=== PATIENT | female | born 1985 | race Two or more races ===

== ENCOUNTER 2021-01-01 13:52 | Emergency (ER) | payer BC, OTHER ==
[~2021-01-01] VITALS: Ht 180.3 cm; Wt 52.6 kg
[2021-01-01 14:45] LABS: Urine Bacteria NONE SEEN /hpf (None Seen); Urine Blood Negative /uL (Negative); Urine Specific Gravity 1.006 (1.001-1.035); Urine WBC <1 /hpf (0 - 5)
[2021-01-01 15:04] LABS: Basophils # (auto) 0 10 ^3/uL (0-0.2); Basophils % (auto) 0.4 % (0.0-2.0); Eosinophils # (auto) 0 10 ^3/uL (0-0.8); Eosinophils % (auto) 0.1 % (0.0-7.0); Hematocrit 43.1 % (36.0-46.0); Hemoglobin 14.9 g/dL (12.2-16.2); Lymphocytes # (auto) 1.5 10 ^3/uL (0.4-5.4); Lymphocytes % (auto) 24.1 % (10.0-50.0); Mean Corpuscular Hemoglobin 30.5 pg (28.0-32.0); Mean Corpuscular Hgb Conc. 34.5 g/dL (32.0-36.0); Mean Corpuscular Volume 88.4 fL (80.0-100.0); Monocytes # (auto) 0.4 10 ^3/uL (0-1.3); Monocytes % (auto) 6.3 % (0.0-12.0); Neutrophils # (auto) 4.3 10 ^3/uL (1.6-8.6); Neutrophils % (auto) 69.1 % (37.0-80.0); Nucleated Red Blood Cells % 0.1 %; Red Blood Cells 4.88 10^6/uL (4.0-5.20); Red Cell Distribution Width 12.7 % (11.8-14.3); White Blood Cell 6.2 10^3/uL (4.4-10.8)
[2021-01-01 15:15] LABS: Albumin 4.2 g/dL (3.4-5.0); Calcium 8.8 mg/dL (8.5-10.1); Potassium 3.7 mmol/L (3.5-5.1)
[2021-01-01 15:19] LABS: BUN/Creatinine Ratio 13.8; Bilirubin, Total 2.4 mg/dL (0.2-1.0); Total Protein 7.9 g/dL (6.4-8.2)
[2021-01-01] MEDS ORDERED: SODIUM CHLORIDE 0.9% 1,000 ML IV ONE (17:15)
[2021-01-01] MEDS ORDERED: METOCLOPRAMIDE HCL 5MG/ml INJ 2ml VIAL IV ONE (17:15)
[2021-01-01 17:52] VITALS: BP 104/77
[2021-01-01 18:22] LABS: Magnesium 2.5 mg/dL (1.6-2.6)
== END 2021-01-01 18:32 | disposition home or self-care (01) ==
LOC: ER 13:52
DX: R10.31 Right lower quadrant pain (principal); E80.6 Other disorders of bilirubin metabolism
CPT/HCPCS: 36415; 74176; 80053; 81001; 81025; 83690; 83735; 84443; 84702; 85025

== ENCOUNTER 2024-10-06 15:44 | Emergency (ER) | payer BC ==
[~2024-10-06] VITALS: Ht 180.3 cm; Wt 63.0 kg
[2024-10-06 16:40] LABS: Urine Bacteria None Seen /hpf (None Seen)
[2024-10-06 16:48] LABS: Basophils # (auto) 0 10 ^3/uL (0-0.2); Basophils % (auto) 0.2 % (0.0-2.0); Eosinophils # (auto) 0 10 ^3/uL (0-0.8); Eosinophils % (auto) 0.2 % (0.0-7.0); Hematocrit 40.9 % (36.0-46.0); Hemoglobin 13.6 g/dL (12.2-16.2); Lymphocytes # (auto) 1.6 10 ^3/uL (0.4-5.4); Lymphocytes % (auto) 27.2 % (10.0-50.0); Mean Corpuscular Hemoglobin 29.4 pg (28.0-32.0); Mean Corpuscular Hgb Conc. 33.3 g/dL (32.0-36.0); Mean Corpuscular Volume 88.2 fL (80.0-100.0); Monocytes # (auto) 0.5 10 ^3/uL (0-1.3); Monocytes % (auto) 8.1 % (0.0-12.0); Neutrophils # (auto) 3.7 10 ^3/uL (1.6-8.6); Neutrophils % (auto) 64.3 % (37.0-80.0); Nucleated Red Blood Cells % 0.1 %; Platelet Count (auto) 154 10^3/uL (140-450); Red Blood Cells 4.64 10^6/uL (4.0-5.20); Red Cell Distribution Width 13.1 % (11.8-14.3); White Blood Cell 5.7 10^3/uL (4.4-10.8)
--- NOTE | 2024-10-06 16:49 | ED.PDOC ---
GI ASSESSMENT HPI Comments Hieu: HPI: Poor Historian. HPI: 39 y/o F, presents to the ED for CC of abdominal pain. Patient relays, that she has been experiencing RUQ abdominal pain x 1day. Patient comments on, having anal sex on 10/14/24 with her and is unsure if symptoms might be related to pain . Patient states, that she has a PMHX of gallstones and colitis which could potentially be cause of symptoms. Patient denies fever, chills, nausea, vomiting, diarrhea, dysuria, or blood streaked bowel movements. No other symptoms or modifying factors at this time. Initial Vital Signs: Temp : BP: HR: RR: SpO2: Past Medical History: GALLSTONES COLITIS Past Surgical History: Denies any Social History: Denies smoking, ETOH, or drug use. Allergies: NKDA REVIEW OF SYSTEMS: CONSTITUTIONAL: Denies acute: fever, diaphoresis, chills, generalized weakness. HEAD: Denies acute: headache, photophobia Eyes: Denies acute: Double vision, vision loss, eye pain, eye discharge. EARS: Denies acute: tinnitus, hearing loss, ear discharge, ear pain, THROAT: Denies acute: sore throat, swelling, difficulty swallowing , pain with swallowing, change in voice. NECK: Denies acute: neck pain, neck swelling, stiff neck. HEART: Denies acute : chest pain, palpitations, LUNGS: Denies acute: SOB, wheezing, cough, hemoptysis ABDOMEN: Denies acute: Nausea, Vomiting, diarrhea, melena , hematemesis, hematochezia SKIN: Denies acute: rash, redness, lesions, itchiness. EXTREMITIES: Denies acute: calf pain, numbness, tingling, weakness, denies pain in extremity. Denies acute: Low back pain. Neuro: Denies acute: focal neurological deficit, motor or sensory focal neurological deficit, tremors, seizure like activity, confusion, dizziness, change in mental status, loss of bowel or bladder function, cauda equina like symptoms. : Denies acute: dysuria, hematuria, flank pain, increase in urinary frequency. PSYCH: Denies acute: hallucination, suicidal ideation, homicidal ideation. FEMALE: Denies acute: abnormal vaginal bleeding, foul odor, unusual discharge. PHYSICAL EXAM: General: no acute distress, awake and alert. Head: normocephalic, atraumatic. Neck: supple, trachea is midline, no swelling. Throat: Normal phonation. Eyes:, no erythema, no purulent discharge, no proptosis, no icterus. Heart: regular rate, regular rhythm, no significant murmur appreciated. Lungs: no apparent respiratory distress, Able to speak in full sentences. No wheezing, no rhonchi, no crackles. No stridors Clear to auscultation bilaterally. Abdomen: Right upper quadrant tender to palpation, non distended, soft, no guarding, no rebound, + bowel sounds. Neuro: Awake, Alert, oriented to name, self, situation, follows commands GCS=15. Speech is normal. Skin: no petechia, no purpura, no cyanosis, non-pale, not jaundice. Lower extremities: --no - Pitting edema no deformity, no focal swelling, no calf TTP. Makes eye contact. moves all four extremities. Face: no apparent facial droop. Right CVA tenderness to percussion Ambulating in the ED independently. ED COURSE: Chief Complaint: Abdominal Pain Time Seen by MD: 16:40 Primary Care Provider: PAPO Singleton Notes: Nurses Notes, Medications, Allergies Allergies: Coded Allergies: NO KNOWN ALLERGIES (Unverified , 01/01/21) Information Source: Patient Mode of Arrival: Ambulatory Timing: Days Duration: Since onset Prehospital treatment: None Quality: None Vomitus: None Severity: None Recent: None Recent Hx of: None Pain Location: RUQ Modifying Factors: Nothing Associated sign and symptoms: None Was a procedure done? Was a procedure done?: No GI differential Dx Differential Diagnosis: Other (DDX include Diverticulitis, colitis, gastroenteritis, acute abdomen, SBO, enteritis, constipation, volvulus, appendicitis, Gallbladder disease, choledocolithiasis, ascending cholangitis, pancreatitis, intraAbdominal mass/neoplasm, hepatitis, UTI, pylonephritis, kidney stone, aneurysm, dissection, Inflammatory bowel disease, gastroparesis, ischemic bowel, ovarian torsion, ovarian cyst/mass, tubo-ovarian abscess, , ectopic , PID, STD.) X-Ray, Labs, Meds, VS Vital Signs Date Time Temp Pulse Resp B/P (MAP) Pulse Ox O2 Delivery O2 Flow Rate FiO2 10/06/24 16:02 97.9 109 16 127/78 (94) 98 Lab Test 10/06/24 16:30 10/06/24 05:59 Range/Units White Blood Count 5.7 4.4-10.8 10^3/uL Red Blood Count 4.64 4.0-5.20 10^6/uL Hemoglobin 13.6 12.2-16.2 g/dL Hematocrit 40.9 36.0-46.0 % Mean Corpuscular Volume 88.2 80.0-100.0 fL Mean Corpuscular Hemoglobin 29.4 28.0-32.0 pg Mean Corpuscular Hemoglobin Concent 33.3 32.0-36.0 g/dL Red Cell Distribution Width 13.1 11.8-14.3 % Platelet Count 154 140-450 10^3/uL Mean Platelet Volume 7.9 6.9-10.8 fL Neutrophils (%) (Auto) 64.3 37.0-80.0 % Lymphocytes (%) (Auto) 27.2 10.0-50.0 % Monocytes (%) (Auto) 8.1 0.0-12.0 % Eosinophils (%) (Auto) 0.2 0.0-7.0 % Basophils (%) (Auto) 0.2 0.0-2.0 % Neutrophils # (Auto) 3.7 1.6-8.6 10 ^3/uL Lymphocytes # (Auto) 1.6 0.4-5.4 10 ^3/uL Monocytes # (Auto) 0.5 0-1.3 10 ^3/uL Eosinophils # (Auto) 0 0-0.8 10 ^3/uL Basophils # (Auto) 0 0-0.2 10 ^3/uL Nucleated Red Blood Cells 0.1 % Sodium Level 138 136-145 mmol/L Potassium Level 3.8 3.5-5.1 mmol/L Chloride Level 103 98-107 mmol/L Carbon Dioxide Level 27 20-31 mmol/L Anion Gap 8 5-15 Blood Urea Nitrogen 5 L 9-23 mg/dL Creatinine 0.57 0.550-1.02 mg/dL Glomerular Filtration Rate Calc 119 >90 mL/min BUN/Creatinine Ratio 8.8 L 10.0-20.0 Serum Glucose 96 74-106 mg/dL Lactic Acid Level 1.2 0.4-2.0 mmol/L Calcium Level 9.9 8.7-10.4 mg/dL Total Bilirubin 2.2 H 0.2-1.0 mg/dL Aspartate Amino Transferase (AST) 19 13-40 U/L Alanine Aminotransferase (ALT) 29 7-40 U/L Alkaline Phosphatase 52 46-116 U/L Total Protein 7.3 5.7-8.2 g/dL Albumin 4.7 3.2-4.8 g/dL Lipase 40 12-53 U/L Urine Color Light-orange Yellow Urine Clarity Clear Clear Urine pH 5.5 5.0-9.0 Urine Specific [place] 1.015 1.001-1.035 Urine Protein Negative Negative Urine Ketones 3+ H Negative Urine Blood Negative Negative /uL Urine Nitrite Negative Negative Urine Bilirubin Negative Negative Urine Urobilinogen Normal Negative mg/dL Urine Leukocyte Esterase Negative Negative /uL Urine RBC 1 0 - 4 /hpf Urine Microscopic WBC 1 0-5 /HPF Urine Squamous Epithelial Cells Few <5 /hpf Urine Calcium Oxalate Crystals Mod None Seen Urine Bacteria None seen None Seen /hpf Urine Mucus Few None Seen Urine Glucose Normal Normal mg/dL [place] [address] Ph: [phone] DIAGNOSTIC IMAGING Diagnostic Imaging Report : [id number] Signed with Addenda PATIENT: NATHALY WEINSTEINACCT: [id number] UNIT: [id number] : 1985 LOC: ER ROOM / BED: / AGE / SEX: 39 / F ADM STATUS: REG ER SERVICE [id number] ORDERING PHYSICIAN: SALMA REYES DO PROCEDURE(s): ABPLIV - CT AB PEL WITH IV CON ONLY REASON: RIGHT ABD PAIN ORDER NUMBER(s): [id number], ACCESSION NUMBER(s): [id number] ADDENDUM ADDENDUM # 1 Questionable vaguely calcified gallstone in the gallbladder dependent portion series 2 image 36. If of clinical concern recommend gallbladder ultrasound. ORIGINAL REPORT Exam: CT CT AB PEL WITH IV CON ONLY History: RIGHT ABD PAIN Comparison Study: None available at time of dictation. Contrast: Type of contrast: Omnipaque 300 Contrast injected: 85 mL Contrast wasted: 0 TECHNIQUE: A digital school speech therapist image was obtained. During the uneventful, intravenous administration of contrast material, multislice data acquisition was obtained through the abdomen and pelvis. The data set was subsequently reconstructed into axial images. Images were reviewed on a work station using a combination of axial and multiplanar using a variety of window levels and settings. Radiation Dose Information: CT Dose: CTDI volume is 5.69 mGy. Dose-length product is 284.76 mGy*cm FINDINGS: Lung Bases: Motion artifact in the lower lung jones bilaterally. Normal heart size. No pleural or pericardial effusion. Liver: The liver is normal in size. No focal lesions. Normal hepatic vascular enhancement. Gallbladder and Biliary Tree: Unremarkable Spleen: Unremarkable Pancreas: The pancreas is normal in appearance without focal lesions or abnormal enhancement. Adrenal Glands: Unremarkable Kidneys: Punctate calculus lower pole left kidney with no hydronephrosis Bladder: Near the left ureterovesical junction. Bowel: The stomach is grossly normal in appearance. Small bowel and colon are normal in caliber and distribution. The appendix is not visualized; however, no secondary findings of acute appendicitis identified. Ascites: Absent Lymphadenopathy: No mesenteric, retroperitoneal or periportal lymphadenopathy. Abdominal Wall and Mesentery: Unremarkable. Vasculature: The visualized abdominal aorta is normal in size and caliber. Abdominal and pelvic vessels demonstrate normal enhancement. Pelvic Organs: Unremarkable Musculoskeletal: No aggressive focal bony lesions, acute fractures or dislocation. Soft tissues: Unremarkable. IMPRESSION: 1. All renal findings are on the left and not the right correlation laterality of patient's symptomatology. 2. Punctate intrarenal calculus on the left no hydronephrosis 3. 4-5 mm calculus near the left ureterovesical junction. This may be a distal ureteral calculus or a pelvic phlebolith. 4. All CT scans at this medical facility are performed using dose modulation techniques as appropriate to a performed exam including the following: Automated exposure control was utilized; adjustment of the MA and/or KV according to zion ent size; and use of iterative reconstruction technique. No findings of bowel obstruction ATED BY: ELEN GUTIERREZ Jr., DO DICTATED DATE/TIME: 10/06/241904 SIGNED BY: ELEN GUTIERREZ Jr., DO SIGNED DATE/TIME: 10/06/241904 CC: Exam: CT CT AB PEL WITH IV CON ONLY History: RIGHT ABD PAIN Comparison Study: None available at time of dictation. Contrast: Type of contrast: Omnipaque 300 Contrast injected: 85 mL Contrast wasted: 0 TECHNIQUE: A digital school speech therapist image was obtained. During the uneventful, intravenous administration of contrast material, multislice data acquisition was obtained through the abdomen and pelvis. The data set was subsequently reconstructed into axial images. Images were reviewed on a work station using a combination of axial and multiplanar using a variety of window levels and settings. Radiation Dose Information: CT Dose: CTDI volume is 5.69 mGy. Dose-length product is 284.76 mGy*cm FINDINGS: Lung Bases: Motion artifact in the lower lung jones bilaterally. Normal heart size. No pleural or pericardial effusion. Liver: The liver is normal in size. No focal lesions. Normal hepatic vascular enhancement. Gallbladder and Biliary Tree: Unremarkable Spleen: Unremarkable Pancreas: The pancreas is normal in appearance without focal lesions or abnormal enhancement. Adrenal Glands: Unremarkable Kidneys: Punctate calculus lower pole left kidney with no hydronephrosis Bladder: Near the left ureterovesical junction. Bowel: The stomach is grossly normal in appearance. Small bowel and colon are normal in caliber and distribution. The appendix is not visualized; however, no secondary findings of acute appendicitis identified. Ascites: Absent Lymphadenopathy: No mesenteric, retroperitoneal or periportal lymphadenopathy. Abdominal Wall and Mesentery: Unremarkable. Vasculature: The visualized abdominal aorta is normal in size and caliber. Abdominal and pelvic vessels demonstrate normal enhancement. Pelvic Organs: Unremarkable Musculoskeletal: No aggressive focal bony lesions, acute fractures or dislocation. Soft tissues: Unremarkable. IMPRESSION: 1. All renal findings are on the left and not the right correlation laterality of patient's symptomatology. 2. Punctate intrarenal calculus on the left no hydronephrosis 3. 4-5 mm calculus near the left ureterovesical junction. This may be a distal ureteral calculus or a pelvic phlebolith. 4. All CT scans at this medical facility are performed using dose modulation techniques as appropriate to a performed exam including the following: Automated exposure control was utilized; adjustment of the MA and/or KV according to patient size; and use of iterative reconstruction technique. No findings of bowel obstruction ATED BY: ELEN GUTIERREZ Jr., DO DICTATED DATE/TIME: 10/06/241819 SIGNED BY: ELEN GUTIERREZ Jr., DO SIGNED DATE/TIME: 10/06/241819 CC: [place] [address] Ph: [phone] DIAGNOSTIC IMAGING Diagnostic Imaging Report : [id number] Signed PATIENT: NATHALY WEINSTEINACCT: [id number] UNIT: [id number] : 1985 LOC: ER ROOM / BED: / AGE / SEX: 39 / F ADM STATUS: REG ER SERVICE 04 ORDERING PHYSICIAN: SALMA REYES DO PROCEDURE(s): ABDL - ABDOMEN LIMITED REASON: ruq pain ORDER NUMBER(s): [id number], ACCESSION NUMBER(s): [id number] INDICATION: ruq pain TECHNIQUE: Multiple real-time sonographic images were obtained of the right upper quadrant. COMPARISON: None FINDINGS: The liver demonstrates homogeneous echotexture without focal mass lesions. The liver measures 13.8 cm. There is no intrahepatic or extrahepatic ductal dilatation. The common duct measures 0.4 cm. Cholelithiasis. The gallbladder wall measures 0.2 cm and is within normal limits. The right kidney measures 9.7 cm. The right kidney is normal in contour, size, and shape. The echogenicity is normal. There is no hydronephrosis. The pancreas is not well visualized due to overlying bowel gas. IMPRESSION: Cholelithiasis without secondary signs of cholecystitis. ATED BY: MIKE MONK MD DICTATED DATE/TIME: 10/06/242001 SIGNED BY: MIKE MONK MD SIGNED DATE/TIME: 10/06/242001 CC: Time of 1ST Reevaluation: 17:20 Reevaluation 1ST: Unchanged Patient Education/Counseling: Diagnosis, Treatment Family Education/Counseling: No Family Present Comments Patient presented with the above HPI.--- ABDOMINAL PAIN ---workup was initiated. patient was found with the above mentioned diagnosis. the following medications were ordered: TAMSULOSIN HYDROCHLORIDE, KETOROLAC INJECTION please refer to order lists of meds and tests obtained by myself Dr. Reyes. Patient ED course and VS have been stabilized. Patient has been reassessed in the ED and remained in a stable condition. Pertinent incidental findings were discussed with the patient and/or family. Patient/family voices understanding and is agreeable with plan. Patient has been observed in the ED adequate length of time to insure improvemen t/stability. Escalation of care considered: Consideration of escalation to observation or admission Patient's symptoms were on the right side however incidental findings were noted on the left side on CT scan of possible kidney stone. Patient was given Flomax for that. Patient was DISCHARGED home in a stable condition. All the reports of any imaging studies that were ordered by myself were reviewed by myself. Departure 1 Departure Time of Disposition: 19:04 Impression: Primary Impression: Right upper quadrant abdominal pain Additional Impressions: Left renal stone Cholelithiasis Disposition: HOME / SELF CARE / HOMELESS Condition: Stable Additional Instructions: Additional discharge instructions: You MUST follow-up with your primary care/family doctor in 1 to 2 days. If you are unable to see your primary care/family doctor, please return to our emergency room for re-assessment and re-evaluation in 1 to 2 days. Return to the emergency room here in our facility or to the nearest ER ERIC if your symptoms change or worsen. CONSULTATIONS: you MUST Follow-up for consultation as soon as possible with: -gastroenterology and urology in 1-2 days. Please call for appointment. You MUST call the consultants office yourself to make an appointment. You may need to arrange that through your insurance and/or your primary/family doctor. If you are unable to see the in home sales consultant in 1 to 2 days, you must return to our emergency room (or any other ER of your choice) for re-assessment and re- evaluation. Adequate fluid hydration. Avoid fatty greasy spicy food. Avoid caffeinated products. Avoid NSAIDs. Below is a copy of your radiological report for follow up: [address] [address] Ph: [phone] DIAGNOSTIC IMAGING Diagnostic Imaging Report : [id number] Signed with Addenda PATIENT: NATHALY WEINSTEIN ACCT: [id number] UNIT: [id number] : 1985 LOC: ER ROOM / BED: / AGE / SEX: 39 / F ADM STATUS: REG ER SERVICE 1613 ORDERING PHYSICIAN: SALMA REYES DO PROCEDURE(s): ABPLIV - CT AB PEL WITH IV CON ONLY REASON: RIGHT ABD PAIN ORDER NUMBER(s): [id number], ACCESSION NUMBER(s): [id number] ADDENDUM ADDENDUM # 1 Questionable vaguely calcified gallstone in the gallbladder dependent portion series 2 image 36. If of clinical concern recommend gallbladder ultrasound. ORIGINAL REPORT Exam: CT CT AB PEL WITH IV CON ONLY History: RIGHT ABD PAIN Comparison Study: None available at time of dictation. Contrast: Type of contrast: Omnipaque 300 Contrast injected: 85 mL Contrast wasted: 0 TECHNIQUE: A digital school speech therapist image was obtained. During the uneventful, intravenous administration of contrast material, multislice data acquisition was obtained through the abdomen and pelvis. The data set was subsequently reconstr ucted into axial images. Images were reviewed on a work station using a combination of axial and multiplanar using a variety of window levels and settings. Radiation Dose Information: CT Dose: CTDI volume is 5.69 mGy. Dose-length product is 284.76 mGy*cm FINDINGS: Lung Bases: Motion artifact in the lower lung jones bilaterally. Normal heart size. No pleural or pericardial effusion. Liver: The liver is normal in size. No focal lesions. Normal hepatic vascular enhancement. Gallbladder and Biliary Tree: Unremarkable Spleen: Unremarkable Pancreas: The pancreas is normal in appearance without focal lesions or abnormal enhancement. Adrenal Glands: Unremarkable Kidneys: Punctate calculus lower pole left kidney with no hydronephrosis Bladder: Near the left ureterovesical junction. Bowel: The stomach is grossly normal in appearance. Small bowel and colon are normal in caliber and distribution. The appendix is not visualized; however, no secondary findings of acute appendicitis identified. Ascites: Absent Lymphadenopathy: No mesenteric, retroperitoneal or periportal lymphadenopathy. Abdominal Wall and Mesentery: Unremarkable. Vasculature: The visualized abdominal aorta is normal in size and caliber. Abdominal and pelvic vessels demonstrate normal enhancement. Pelvic Organs: Unremarkable Musculoskeletal: No aggressive focal bony lesions, acute fractures or dislocation. Soft tissues: Unremarkable. IMPRESSION: 1. All renal findings are on the left and not the right correlation laterality o f patient's symptomatology. 2. Punctate intrarenal calculus on the left no hydronephrosis 3. 4-5 mm calculus near the left ureterovesical junction. This may be a distal ureteral calculus or a pelvic phlebolith. 4. All CT scans at this medical facility are performed using dose modulation techniques as appropriate to a performed exam including the following: Automated exposure control was utilized; adjustment of the MA and/or KV according to patient size; and use of iterative reconstruction technique. No findings of bowel obstruction ATED BY: ELEN GUTIERREZ Jr., DO DICTATED DATE/TIME: 10/06/241904 SIGNED BY: ELEN GUTIERREZ Jr., DO SIGNED DATE/TIME: 10/06/241904 CC: Exam: CT CT AB PEL WITH IV CON ONLY History: RIGHT ABD PAIN Comparison Study: None available at time of dictation. Contrast: Type of contrast: Omnipaque 300 Contrast injected: 85 mL Contrast wasted: 0 TECHNIQUE: A digital school speech therapist image was obtained. During the uneventful, intravenous administration of contrast material, multislice data acquisition was obtained through the abdomen and pelvis. The data set was subsequently reconstructed into axial images. Images were reviewed on a work station using a combination of axial and multiplanar using a variety of window levels and settings. Radiation Dose Information: CT Dose: CTDI volume is 5.69 mGy. Dose-length product is 284.76 mGy*cm FINDINGS: Lung Bases: Motion artifact in the lower lung jones bilaterally. Normal heart size. No pleural or pericardial effusion. Liver: The liver is normal in size. No focal lesions. Normal hepatic vascular enhancement. Gallbladder and Biliary Tree: Unremarkable Spleen: Unremarkable Pancreas: The pancreas is normal in appearance without focal lesions or abnormal enhancement. Adrenal Glands: Unremarkable Kidneys: Punctate calculus lower pole left kidney with no hydronephrosis Bladder: Near the left ureterovesical junction. Bowel: The stomach is grossly normal in appearance. Small bowel and colon are normal in caliber and distribution. The appendix is not visualized; however, no secondary findings of acute appendicitis identified. Ascites: Absent Lymphadenopathy: No mesenteric, retroperitoneal or periportal lymphadenopathy. Abdominal Wall and Mesentery: Unremarkable. Vasculature: The visualized abdominal aorta is normal in size and caliber. Abdominal and pelvic vessels demonstrate normal enhancement. Pelvic Organs: Unremarkable Musculoskeletal: No aggressive focal bony lesions, acute fractures or dislocation. Soft tissues: Unremarkable. IMPRESSION: 1. All renal findings are on the left and not the right correlation laterality of patient's symptomatology. 2. Punctate intrarenal calculus on the left no hydronephrosis 3. 4-5 mm calculus near the left ureterovesical junction. This may be a distal ureteral calculus or a pelvic phlebolith. 4. All CT scans at this medical facility are performed using dose modulation techniques as appropriate to a performed exam including the following: Automated exposure control was utilized; adjustment of the MA and/or KV according to patient size; and use of iterative reconstruction technique. No findings of bowel obstruction ATED BY: ELEN GUTIERREZ Jr., DO DICTATED DATE/TIME: 10/06/241819 SIGNED BY: ELEN GUTIERREZ Jr., SIGNED DATE/TIME: 10/06/241819 CC: [place] [address] Ph: [phone] DIAGNOSTIC IMAGING Diagnostic Imaging Report : [id number] Signed PATIENT: NATHALY WEINSTEIN ACCT: [id number] UNIT: [id number] : 1985 LOC: ER ROOM / BED: / AGE / SEX: 39 / F ADM STATUS: REG ER SERVICE 04 ORDERING PHYSICIAN: SALMA REYES DO PROCEDURE(s): ABDL - ABDOMEN LIMITED REASON: ruq pain ORDER NUMBER(s): [id number], ACCESSION NUMBER(s): [id number] INDICATION: ruq pain TECHNIQUE: Multiple real-time sonographic images were obtained of the right upper quadrant. COMPARISON: None FINDINGS: The liver demonstrates homogeneous echotexture without focal mass lesions. The liver measures 13.8 cm. There is no intrahepatic or extrahepatic ductal dilatation. The common duct measures 0.4 cm. Cholelithiasis. The gallbladder wall measures 0.2 cm and is within normal limits. The right kidney measures 9.7 cm. The right kidney is normal in contour, size, and shape. The echogenicity is normal. There is no hydronephrosis. The pancreas is not well visualized due to overlying bowel gas. IMPRESSION: Cholelithiasis without secondary signs of cholecystitis. ATED BY: MIKE MONK MD DICTATED DATE/TIME: 10/06/242001 SIGNED BY: MIKE MONK MD SIGNED DATE/TIME: 10/06/242001 CC: Discharged With: Self Critical Care Note Critical Care Time?: No Heart Score Heart Score: Heart Score Response (Comments) Value History N/A 0 EKG N/A 0 Age N/A 0 Risk Factors N/A 0 Troponin N/A 0 Total 0 I personally scribed for SALMA REYES DO ([email or web address]) on 10/06/24 at 16:49. Electronically submitted by Huong Calvert ([email or web address]). I personally scribed for SALMA REYES DO ([email or web address]) on 10/06/24 at 19:39. Electronically submitted by Huong Calvert ([email or web address]). I personally scribed for SALMA REYES DO ([email or web address]) on 10/06/24 at 19:41. Electronically submitted by Huong Calvert ([email or web address]). I personally scribed for SALMA REYES DO ([email or web address]) on 10/06/24 at 19:43. Electronically submitted by Huong Calvert ([email or web address]). I personally scribed for SALMA REYES DO ([email or web address]) on 10/06/24 at 20:16. Electronically submitted by Huong Calvert [email or web address]). SALMA REYES DO Oct 06, 2024 16:49
[2024-10-06 16:58] LABS: Urine Blood Negative /uL (Negative); Urine Clarity Clear (Clear); Urine Color Light-Orange (Yellow); Urine Mucus FEW (None Seen); Urine Protein, UAD Negative (Negative); Urine Specific Gravity 1.015 (1.001-1.035); Urine Squamous Epithelial Cell FEW /hpf (<5); Urine Urobilinogen Normal (Negative); Urine WBC 1 /HPF (0-5); Urine pH 5.5 (5.0-9.0)
[2024-10-06 17:08] LABS: Alanine Aminotransferase 29 U/L (7-40); Albumin 4.7 g/dL (3.2-4.8); Alkaline Phosphatase 52 U/L (46-116); Anion Gap 8 (5-15); Aspartate Aminotransferase 19 U/L (13-40); BUN/Creatinine Ratio 8.8 (10.0-20.0); Calcium 9.9 mg/dL (8.7-10.4); Carbon Dioxide 27 mmol/L (20-31); Chloride 103 mmol/L (98-107); Glucose 96 mg/dL (74-106); Lipase 40 U/L (12-53); Potassium 3.8 mmol/L (3.5-5.1); Sodium 138 mmol/L (136-145); Total Protein 7.3 g/dL (5.7-8.2)
[2024-10-06 17:09] LABS: Bilirubin, Total 2.2 mg/dL (0.2-1.0); Blood Urea Nitrogen 5 mg/dL (9-23)
[2024-10-06] MEDS ORDERED: IOHEXOL 300 MG/ML 100ML BOTTLE IJ ONE (17:56)
--- NOTE | 2024-10-06 18:23 | DVH ---
Exam: CT CT AB PEL WITH IV CON ONLY History: RIGHT ABD PAIN Comparison Study: None available at time of dictation. Contrast: Type of contrast: Omnipaque 300 Contrast injected: 85 mL Contrast wasted: 0 TECHNIQUE: A digital vamp liner image was obtained. During the uneventful, intravenous administration of c ontrast material, multislice data acquisition was obtained through the abdomen and pelvis. The data s et was subsequently reconstructed into axial images. Images were reviewed on a work station using a c ombination of axial and multiplanar using a variety of window levels and settings. Radiation Dose Information: CT Dose: CTDI volume is 5.69 mGy. Dose-length product is 284.76 mGy*cm FINDINGS: Lung Bases: Motion artifact in the lower lung jones bilaterally. Normal heart size. No pleural or p ericardial effusion. Liver: The liver is normal in size. No focal lesions. Normal hepatic vascular enhancement. Gallbladder and Biliary Tree: Unremarkable Spleen: Unremarkable Pancreas: The pancreas is normal in appearance without focal lesions or abnormal enhancement. Adrenal Glands: Unremarkable Kidneys: Punctate calculus lower pole left kidney with no hydronephrosis Bladder: Near the left ureterovesical junction. Bowel: The stomach is grossly normal in appearance. Small bowel and colon are normal in caliber and d istribution. The appendix is not visualized; however, no secondary findings of acute appendicitis id entified. Ascites: Absent Lymphadenopathy: No mesenteric, retroperitoneal or periportal lymphadenopathy. Abdominal Wall and Mesentery: Unremarkable. Vasculature: The visualized abdominal aorta is normal in size and caliber. Abdominal and pelvic vess els demonstrate normal enhancement. Pelvic Organs: Unremarkable Musculoskeletal: No aggressive focal bony lesions, acute fractures or dislocation. Soft tissues: Unremarkable. IMPRESSION: 1. All renal findings are on the left and not the right correlation laterality of patient's symptomat ology. 2. Punctate intrarenal calculus on the left no hydronephrosis 3. 4-5 mm calculus near the left ureterovesical junction. This may be a distal ureteral calculus or a pelvic phlebolith. 4. All CT scans at this medical facility are performed using dose modulation techniques as appropriate to a performed exam including the following: Automated exposure control was utilized; adjustment of t he MA and/or KV according to patient size; and use of iterative reconstruction technique. No findings of bowel obstruction
--- NOTE | 2024-10-06 20:07 | DVH ---
INDICATION: ruq pain TECHNIQUE: Multiple real-time sonographic images were obtained of the right upper quadrant. COMPARISON: None FINDINGS: The liver demonstrates homogeneous echotexture without focal mass lesions. The liver measu res 13.8 cm. There is no intrahepatic or extrahepatic ductal dilatation. The common duct measures 0.4 cm. Cholelithiasis. The gallbladder wall measures 0.2 cm and is within normal limits. The right kidney measures 9.7 cm. The right kidney is normal in contour, size, and shape. The echog enicity is normal. There is no hydronephrosis. The pancreas is not well visualized due to overlying bowel gas. IMPRESSION: Cholelithiasis without secondary signs of cholecystitis.
[2024-10-06] MEDS: TAMSULOSIN HYDROCHLORIDE 0.4 MG CAP PO ONE (20:49)
[2024-10-06] MEDS: KETOROLAC TROMETH 30 MG/ML 1ML VIAL IV ONE (20:54)
[2024-10-06 20:56] VITALS: BP 115/72; TEMP 98
[2024-10-06 20:59] VITALS: PULSE 97; RESP 18; O2SAT 97
== END 2024-10-06 21:05 | disposition home or self-care (01) ==
LOC: ER 15:44
DX: N20.2 Calculus of kidney with calculus of ureter (principal); K80.20 Calculus of gallbladder without cholecystitis without obstruction; R10.11 Right upper quadrant pain
CPT/HCPCS: 36415; 74177; 76705; 80053; 81001; 83605; 83690; 85025; 96374; 99285; J1885; Q9967